=== PATIENT | female | born 1995 | race Caucasian/White ===

== ENCOUNTER 2019-11-13 14:58 | Emergency (ER) | payer MEDICAID ==
[~2019-11-13] VITALS: Ht 170.2 cm; Wt 59.0 kg
--- NOTE | 2019-11-13 15:15 | NUR ---
ED Nurse Note: pt walked in from home c/o burning with urination and foul odor x 1 week. pt thinks it is related to her IUD Mirena that was placed in April. pt also has chronic back px x 3 years that she wants evaluated, she denies any recent trauma or injury to the area.
[2019-11-13 15:17] VITALS: BP 114/84
--- NOTE | 2019-11-13 15:30 | NUR ---
ED Nurse Note: blood and urine specimens collected and sent to lab
[2019-11-13 15:41] LABS: APPEARANCE,URINE CLEAR; BILIRUBIN, URINE NEGATIVE (NEGATIVE); COLOR,URINE PALE YELLOW; GLUCOSE, URINE (UA) NEGATIVE (NEGATIVE); KETONES,URINE NEGATIVE (NEGATIVE); LEUKOCYTE ESTERASE ,URINE NEGATIVE (NEGATIVE); NITRITE,URINE NEGATIVE (NEGATIVE); PH,URINE 6 (4.5-8.0); PROTEIN,URINE NEGATIVE (NEGATIVE); UROBILINOGEN,URINE NORMAL MG/DL (0.0-1.0)
[2019-11-13 15:48] LABS: ANION GAP 11 mmol/L (5-15); BASOPHILS % (AUTO) 0.9 % (0.0-2.0); BLOOD UREA NITROGEN 10 mg/dL (7-18); CALCIUM 9.6 MG/DL (8.5-10.1); CARBON DIOXIDE 28 MMOL/L (21-32); CHLORIDE 103 MMOL/L (98-107); CREATININE 0.8 MG/DL (0.55-1.30); EOSINOPHILS % (AUTO) 0.6 % (0.0-3.0); HEMATOCRIT 47.2 % (37.0-47.0); HEMOGLOBIN 15.7 G/DL (12.0-16.0); LYMPHOCYTES % (AUTO) 14.6 % (20.0-45.0); MEAN CORPUSCULAR VOLUME 89 FL (80-99); MONOCYTES % (AUTO) 6.2 % (1.0-10.0); NEUTROPHILS % (AUTO) 77.8 % (45.0-75.0); PLATELET COUNT 376 K/UL (150-450); POTASSIUM 3.6 MMOL/L (3.5-5.1); RED BLOOD COUNT 5.31 M/UL (4.20-5.40); RED CELL DISTRIBUTION WIDTH 14.7 % (11.6-14.8); SODIUM 142 MMOL/L (136-145); WHITE BLOOD COUNT 9.6 K/UL (4.8-10.8)
[2019-11-13 15:53] LABS: ALANINE AMINOTRANSFERASE 19 U/L (12-78); ALBUMIN 4.8 G/DL (3.4-5.0); ALBUMIN/GLOBULIN RATIO 1.4 (1.0-2.7); ALKALINE PHOSPHATASE 67 U/L (46-116); ASPARTATE AMINO TRANSFERASE 16 U/L (15-37); BILIRUBIN,TOTAL 0.5 MG/DL (0.2-1.0)
--- NOTE | 2019-11-13 15:55 | NUR ---
ED Nurse Note: pt taken to x-ray
--- NOTE | 2019-11-13 17:03 | Emergency Room Report ---
History of Present Illness General Chief Complaint: Female Urogenital Problems Source: Patient Present Illness HPI 24-year-old female with no known significant past medical history here complaining of several months of neck and lower back pain without any fall or injury. Patient is very skinny and reports that she likes to sleep on hard mattresses on the floor. Obvious bruising noted on some of the transverse processes of L-spine. Denies any tingling and numbness, pain radiation, urinary bowel incontinence. Also complains of 2 days of dysuria with urinary frequency. Denies any vaginal discharge and reports that she has this foul odor when urinates only. Reports that she was last sexually active over a year ago. Does not want to be treated for STDs. Denies abdominal pain, nausea vomiting diarrhea. Also would like to be checked for anemia as feels like she has been very fatigued lately and anemia runs in her family. Patient also has shortness of breath times several months especially at nighttime. Denies any cough and congestion. Patient has multiple complaints and was told needs to further address time at primary care provider's office. Patient was started on routine blood work and chest x-ray. Denies any tobacco smoke, alcohol intake. 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: No Patient History Past Medical History: see triage record Past Surgical History: none Pertinent Family History: none Last Menstrual Period: unk Now: No Immunizations: UTD Reviewed Nursing Documentation: PMH: Agreed; PSxH: Agreed Review of Systems All Other Systems: negative except mentioned in HPI Physical Exam Vital Signs Date Time Temp Pulse Resp B/P (MAP) Pulse Ox O2 Delivery O2 Flow Rate FiO2 11/13/19 15:05 98.6 101 18 114/84 (94) 99 Room Air Sp02 EP Interpretation: reviewed, normal General Appearance: no apparent distress, alert, GCS 15, non-toxic Head: normocephalic, atraumatic Eyes: bilateral eye normal inspection, bilateral eye PERRL ENT: hearing grossly normal, normal pharynx, no angioedema, normal voice Neck: full range of motion, supple/symm/no masses Respiratory: chest non-tender, lungs clear, normal breath sounds, no rhonchi, no respiratory distress, speaking full sentences Cardiovascular #1: regular rate, rhythm, no edema, no murmur Cardiovascular #2: 2+ radial (R), 2+ radial (L), 2+ dorsalis pedis (R), 2+ dorsalis pedis (L) Gastrointestinal: non tender, soft Rectal: deferred Genitourinary: no CVA tenderness Musculoskeletal: back normal, no calf tenderness Neurologic: alert, motor strength/tone normal, oriented x3, sensory intact, responsive, speech normal Psychiatric: judgement/insight normal, memory normal, mood/affect normal, no suicidal/homicidal ideation Skin: no rash, other - Minor ecchymosis noted transverse processes of lumbar region Lymphatic: no adenopathy Medical Decision Making PA Attestation All my diagnosis and treatment plans were reviewed ad discussed with my supervising physician Dr. Kaur Diagnostic Impression: Primary Impression: Dysuria Additional Impressions: Back contusion Fatigue SOB (shortness of breath) ER Course 24-year-old female with no known significant past medical history here complaining of several months of neck and lower back pain without any fall or injury. Patient is very skinny and reports that she likes to sleep on hard mattresses on the floor. Obvious bruising noted on some of the transverse processes of L-spine. Denies any tingling and numbness, pain radiation, urinary bowel incontinence. Also complains of 2 days of dysuria with urinary frequency. Denies any vaginal discharge and reports that she has this foul odor when urinates only. Reports that she was last sexually active over a year ago. Does not want to be treated for STDs. Denies abdominal pain, nausea vomiting diarrhea. Also would like to be checked for anemia as feels like she has been very fatigued lately and anemia runs in her family. Patient also has shortness of breath times several months especially at nighttime. Denies any cough and congestion. Patient has multiple complaints and was told needs to further ad dress time at primary care provider's office. Patient was started on routine blood work and chest x-ray. Denies any tobacco smoke, alcohol intake. Smokes marijuana marijuana use, alcohol intake Ddx considered but are not limited to: Lumbar spine sprain, strain, fracture, contusion, neuropathy Vital signs: are WNL, pt. is afebrile H&PE are most consistent with: Back contusion, fatigue, dysuria, shortness of breath ORDERS: Lumbar spine x-ray, cervical spine x-ray, chest x-ray, CBC, CMP, UA, urine test, Macrobid, Flexeril as patient request some medication I will help her sleep at night due to pain, lidocaine patch, albuterol per patient's request ER intervention: None DISCHARGE: At this time pt. is stable for d/c to home. Will provide printed patient care instructions, and any necessary prescriptions. Care plan and follow up instructions have been discussed with the patient prior to discharge. Patient to continue taking Motrin, follow primary care provider for further evaluation regarding fatigue and shortness of breath. This time no acute condition noted. Also sleep in a better mattress and not on the hard floor. Further evaluation is needed due to patient ecchymosis which at this time appears to be due to pressure secondary to significant hard mattress. If worsening symptoms return to the emergency room. Chest X-Ray Diagnostic Results Chest X-Ray Diagnostic Results : Chest X-Ray Ordered: Yes # of Views/Limited/Complete: 1 View Indication: Shortness of Breath EP Interpretation: Yes PA Xray: Interpretation reviewed, by supervising , and agrees with findings. Interpretation: no consolidation, no effusion, no pneumothorax Impression: No acute disease Electronically Signed by: Inder Verdin PA-C Other X-Ray Diagnostic Results Other X-Ray Diagnostic Results #1: X-Ray ordered: C-spine # of Views/Limited Vs Complete: 3 View Indication: Pain EP Interpretation: Yes PA Xray: Interpretation reviewed, by supervising MD, and agrees with findings. Interpretation: no dislocation, no soft tissue swelling, no fractures Impression: No acute disease Electronically Signed by: Inder Verdin PA-C Other X-Ray Diagnostic Results #2: X-Ray ordered: L-spine # of Views/Limited Vs Complete: 3 View Indication: Pain EP Interpretation: Yes PA Xray: Interpretation reviewed, by supervising , and agrees with findings. Interpretation: no dislocation, no soft tissue swelling, no fractures Impression: No acute disease Electronically Signed by: Inder Verdin PA-C Last Vital Signs Date Time Temp Pulse Resp B/P (MAP) Pulse Ox O2 Delivery O2 Flow Rate FiO2 11/13/19 15:17 98.6 62 18 114/84 99 Room Air Disposition: HOME, SELF-CARE Condition: Stable Scripts Albuterol Sulfate (VENTOLIN HFA) 18 Gm Hfa.aer.ad 2 PUFFS INH EVERY 6 HOURS, #18 GM 0 Refills Prov: Inder Walsh 11/13/19 Lidocaine Patch* (Lidoderm Patch*) 1 Each Adh..patch 1 PATCH TOPIC DAILY, #30 PATCH Patch(es) may remain in place for up to 12 hours in any 24-hour period. Prov: Inder Walsh 11/13/19 Cyclobenzaprine Hcl* (FLEXERIL*) 10 Mg Tablet 10 MG ORAL QHS, #10 TAB Prov: Inder Walsh 11/13/19 Phenazopyridine Hcl* (PYRIDIUM*) 200 Mg Tablet 200 MG ORAL THREE TIMES A DAY for 2 Days, #6 TAB 0 Refills Prov: Inder Walsh 11/13/19 Nitrofurantoin Monohyd/M-Cryst* (MACROBID 100 MG*) 100 Mg Capsule 100 MG ORAL EVERY 12 HOURS for 7 Days, #14 CAP Prov: Inder Walsh 11/13/19 Referrals: NON PHYSICIAN (PCP) Patient Instructions: Back Pain, Adult, [id number], Fatigue, Shortness of Breath, [id number], Urinary Tract Infection Additional Instructions: Take medication as directed, follow-up with your primary care provider for further evaluation and further blood work if needed, if worsening symptoms return to the emergency room. Inder Walsh Nov 13, 2019 17:03
--- NOTE | 2019-11-13 17:04 | Diagnostic Imaging Report ---
Indication: Shortness of breath Technique: One view of the chest Comparison: none Findings: Lungs and pleural spaces are clear. Heart size is normal. Impression: No acute process
[2019-11-13] MEDS ORDERED: VENTOLIN HFA18 GM INH (17:05)
[2019-11-13] MEDS ORDERED: NITROFURANTOIN100 M2 ORAL (17:05)
[2019-11-13] MEDS ORDERED: LIDODERM700 M1 TOPIC (17:05)
[2019-11-13] MEDS ORDERED: CYCLOBENZAPRINE10 MG ORAL (17:05)
[2019-11-13] MEDS ORDERED: PHENAZOPYRIDIN200 MG ORAL (17:05)
--- NOTE | 2019-11-13 17:06 | Diagnostic Imaging Report ---
Indication: Neck pain and back pain Technique: 3 views of the lumbar spine Comparison: none Findings: Alignment is normal. Vertebral body heights are preserved. The disc spaces are preserved. The pedicles are intact. Intrauterine device is incidentally noted Impression: No acute bony trauma
--- NOTE | 2019-11-13 17:07 | Diagnostic Imaging Report ---
Indication: Neck pain Technique: 3 views of the cervical spine Comparison: none Findings: Bony alignment is normal. No prevertebral soft tissue swelling. Vertebral body heights are preserved. Disc spaces are preserved. Impression: Negative
[2019-11-13 17:15] VITALS: BP 115/85
--- NOTE | 2019-11-13 17:15 | NUR ---
ER DISCHARGE NOTE: Patient is cleared to be discharged per ERMD, pt is aox4, on room air, with stable vital signs. pt was given dc and prescription instructions, pt was able to verbalize understanding, pt id band removed. pt is able to ambulate with steady gait. pt took all belongings.
== END 2019-11-13 17:15 | disposition home or self-care (01) ==
LOC: EMR 15:15
DX: S30.0XXA Contusion of lower back and pelvis, initial encounter (principal); R30.0 Dysuria; R53.83 Other fatigue; R06.02 Shortness of breath; X58.XXXA Exposure to other specified factors, initial encounter; Y92.9 Unspecified place or not applicable; F12.90 Cannabis use, unspecified, uncomplicated
CPT/HCPCS: 36415; 71045; 72020; 72040; 80053; 81003; 81025; 85025; Z7502; 99284